=== PATIENT | male | born 1970 | race Caucasian/White ===

== ENCOUNTER 2018-03-28 11:57 | Emergency (ER) | payer OTHER ==
[~2018-03-28] VITALS: Ht 183.5 cm; Wt 80.5 kg
[2018-03-28 12:30] VITALS: BP 129/96
== END 2018-03-28 14:21 | disposition home or self-care (01) ==
LOC: ER 11:58
DX: L98.499 Non-pressure chronic ulcer of skin of other sites with unspecified severity (principal)
CPT/HCPCS: 73130; 99283

== ENCOUNTER 2022-11-06 21:03 | Emergency (ER) | payer SELFPAY ==
[~2022-11-06] VITALS: Ht 182.9 cm; Wt 75.0 kg
[2022-11-06] MEDS ORDERED: normal saline 1000ml 1,000 ML IV ONE (21:05)
[2022-11-06 21:25] VITALS: BP 135/90
== END 2022-11-06 22:12 ==
LOC: ER 21:04
DX: F10.10 Alcohol abuse, uncomplicated (principal); Y90.9 Presence of alcohol in blood, level not specified
CPT/HCPCS: 96360; 99283; J7030